=== PATIENT | female | born 1970 | race Two or more races ===

== ENCOUNTER 2025-07-04 17:53 | Inpatient (IN) | payer MEDICAID ==
[~2025-07-04] VITALS: Ht 167.6 cm; Wt 84.5 kg
[2025-07-04] MEDS ORDERED: KETOROLAC TROMETHAMINE 15 MG/ML VIAL ONE (18:18)
[2025-07-04] MEDS: KETOROLAC TROMETHAMINE 15 MG/ML VIAL IV ONE (18:27)
[2025-07-04] MEDS: IV NS 0.9% 1,000 ML BAG IV ONE (18:27)
[2025-07-04] MEDS ORDERED: ONDANSETRON HCL/PF 4 MG/2 ML VIAL ONE ×2 (18:31→20:12)
[2025-07-04 18:35] LABS: PLATELET COUNT (AUTO) 210 K/uL (150-450); RED BLOOD CELL COUNT(AUTO) 4.68 MIL/uL (4.0-5.2); RED CELL DISTRIBUTION WIDTH 13.1 % (11.5-15.0); WHITE BLOOD COUNT (AUTO) 10.4 K/uL (4.3-11.0)
[2025-07-04] MEDS: ONDANSETRON HCL/PF - ER 4 MG/2 ML VIAL IV ONE ×2 (18:35→20:12)
[2025-07-04] MEDS ORDERED: IOHEXOL-300 100 ML VIAL IV ONE (18:43)
[2025-07-04] MEDS ORDERED: IV NS 0.9% 250 ML IV ONE (18:43)
[2025-07-04 18:44] LABS: CALCIUM, SERUM 8.9 mg/dL (8.5-10.1); CREATININE 0.9 mg/dL (0.6-1.3); SODIUM SERUM 140.0 mmol/L (136-145); UREA NITROGEN, BLOOD 14.0 mg/dL (7-18)
[2025-07-04 18:49] LABS: ASPARTATE AMINOTRANSFERASE 18.0 U/L (15-37); TOTAL PROTEIN, SERUM 8.0 g/dL (6.4-8.2)
[2025-07-04 18:49] LABS: APPEARANCE,URINE SLIGHTLY CLOUDY (CLEAR); BLOOD, URINE 3+ Ery/uL (NEGATIVE); LEUKOCYTE ESTERASE ,URINE NEGATIVE (NEGATIVE); NITRITE, URINE NEGATIVE (NEGATIVE); UGLUCOSE NEGATIVE (NEGATIVE)
[2025-07-04 18:55] LABS: ADD URINE CULTURE YES; SQUAMOUS EPITHELIAL CELL,UR Many /HPF (None Seen)
[2025-07-04] MEDS ORDERED: MORPHINE SULFATE INJ 2 MG/ML DISP.SYRIN ONE (19:50)
[2025-07-04] MEDS ORDERED: HYDR-3976 GT (19:52)
[2025-07-04] MEDS: MORPHINE SULFATE INJ 2 MG/ML DISP.SYRIN IV ONE (19:52)
[2025-07-04] MEDS ORDERED: HYDROMORPHONE 1 MG/1 ML DISP.SYRIN ONE (20:55)
[2025-07-04] MEDS ORDERED: METOCLOPRAMIDE HCL 10 MG/2 ML VIAL ONE (20:55)
[2025-07-04] MEDS: METOCLOPRAMIDE HCL 10 MG/2 ML VIAL IV ONE (21:04)
[2025-07-04] MEDS: HYDROMORPHONE 1 MG/1 ML DISP.SYRIN IV ONE (21:04)
[2025-07-04] MEDS: IV NS 0.9% 1,000 ML IV ONE (22:00)
[2025-07-04] MEDS ORDERED: CEFTRIAXONE 1GM BAG (ER ONLY) 50 ML IV ONE (22:32)
[2025-07-04] MEDS: CEFTRIAXONE 1 G in IV D5W 50 ML IV ONE (22:36)
[2025-07-04] MEDS: TAMSULOSIN 0.4 MG CAP.SR.24H PO SCH (23:00)
[2025-07-04] MEDS ORDERED: HYDROMORPHONE INJ SYRINGE 1 MG in IV D5W 50 ML IV PRN (23:00)
[2025-07-05] VITALS: BP 144/78; TEMP 99; O2SAT 99
[2025-07-05] MEDS: IV NS 0.9% 1,000 ML IV PRN (00:24)
[2025-07-05 04:00] VITALS: BP 124/72; TEMP 98.6; O2SAT 95
[2025-07-05] MEDS: HYDROMORPHONE 1 MG/1 ML DISP.SYRIN IV PRN (05:47)
[2025-07-05] MEDS: ONDANSETRON HCL/PF 4 MG/2 ML VIAL IVP PRN (05:48)
[2025-07-05] MEDS: MAG HYDROX/AL HYDROX/SIMETH 30 ML UDC PO PRN (07:44)
[2025-07-05 08:00] VITALS: BP 130/81; TEMP 98.4; O2SAT 95
[2025-07-05 08:13] LABS: PLATELET COUNT (AUTO) 181 K/uL (150-450); RED BLOOD CELL COUNT(AUTO) 4.42 MIL/uL (4.0-5.2); RED CELL DISTRIBUTION WIDTH 13.1 % (11.5-15.0); WHITE BLOOD COUNT (AUTO) 24.4 K/uL (4.3-11.0)
[2025-07-05 08:21] LABS: CALCIUM, SERUM 8.3 mg/dL (8.5-10.1); CREATININE 1.3 mg/dL (0.6-1.3); PHOSPHORUS 3.6 mg/dL (2.5-4.9); SODIUM SERUM 139.0 mmol/L (136-145); UREA NITROGEN, BLOOD 14.0 mg/dL (7-18)
[2025-07-05] MEDS ORDERED: MIRABEGRON PO (09:17)
[2025-07-05] MEDS ORDERED: AMYL1CAP54 PO (09:17)
[2025-07-05] MEDS ORDERED: WEGOVY SQ (09:17)
[2025-07-05] MEDS ORDERED: FAMO40TA7 PO (09:17)
[2025-07-05] MEDS ORDERED: LACT1CAP71 PO (09:17)
[2025-07-05] MEDS ORDERED: HYDR-3980 PO (09:17)
[2025-07-05] MEDS: ENOXAPARIN SODIUM 40 MG/0.4 ML DISP.SYRIN SQ SCH (10:44)
[2025-07-05 16:00] VITALS: BP 102/69; TEMP 98.6; O2SAT 97
[2025-07-05] MEDS: ACETAMINOPHEN 325 MG TABLET PO PRN (16:20)
[2025-07-05 20:00] VITALS: BP 104/65; TEMP 97.9; O2SAT 98
[2025-07-05] MEDS: CEFTRIAXONE 1 G in IV D5W 50 ML IV SCH (20:12)
[2025-07-06 04:00] VITALS: BP 110/73; TEMP 97.3; O2SAT 94
[2025-07-06 07:16] LABS: PLATELET COUNT (AUTO) 145 K/uL (150-450); RED BLOOD CELL COUNT(AUTO) 3.95 MIL/uL (4.0-5.2); RED CELL DISTRIBUTION WIDTH 13.5 % (11.5-15.0); WHITE BLOOD COUNT (AUTO) 12.9 K/uL (4.3-11.0)
[2025-07-06 07:38] LABS: ASPARTATE AMINOTRANSFERASE 34.0 U/L (15-37); CALCIUM, SERUM 7.9 mg/dL (8.5-10.1); CREATININE 0.9 mg/dL (0.6-1.3); PHOSPHORUS 2.2 mg/dL (2.5-4.9); SODIUM SERUM 138.0 mmol/L (136-145); TOTAL PROTEIN, SERUM 6.6 g/dL (6.4-8.2); UREA NITROGEN, BLOOD 11.0 mg/dL (7-18)
[2025-07-06 08:00] VITALS: BP 108/67; TEMP 98.4; O2SAT 94
[2025-07-06] MEDS: KETOROLAC TROMETHAMINE INJ 30 MG/ML VIAL IV PRN (09:22)
[2025-07-06] MEDS: K PHOS NEUTRAL 250 MG TABLET PO ONE (16:32)
[2025-07-06 17:15] VITALS: BP 131/86; TEMP 97.9; O2SAT 95
[2025-07-06 20:00] VITALS: BP 124/63; TEMP 97.5; O2SAT 98
[2025-07-07 04:00] VITALS: BP 133/78; TEMP 98.6; O2SAT 97
[2025-07-07 07:35] LABS: PLATELET COUNT (AUTO) 132 K/uL (150-450); RED BLOOD CELL COUNT(AUTO) 3.68 MIL/uL (4.0-5.2); RED CELL DISTRIBUTION WIDTH 13.1 % (11.5-15.0); WHITE BLOOD COUNT (AUTO) 9.1 K/uL (4.3-11.0)
[2025-07-07 07:46] LABS: ASPARTATE AMINOTRANSFERASE 23.0 U/L (15-37); CALCIUM, SERUM 7.9 mg/dL (8.5-10.1); CREATININE 0.7 mg/dL (0.6-1.3); PHOSPHORUS 2.2 mg/dL (2.5-4.9); SODIUM SERUM 140.0 mmol/L (136-145); TOTAL PROTEIN, SERUM 6.2 g/dL (6.4-8.2); UREA NITROGEN, BLOOD 9.0 mg/dL (7-18)
[2025-07-07 08:00] VITALS: BP 134/81; TEMP 98.6; O2SAT 95
[2025-07-07 16:00] VITALS: BP 135/89; TEMP 98.1; O2SAT 97
[2025-07-07] MEDS: K PHOS NEUTRAL 250 MG TABLET PO ONE (16:06)
[2025-07-07 20:00] VITALS: BP 126/75; TEMP 98.3; O2SAT 98
[2025-07-08 04:00] VITALS: BP 130/80; TEMP 98.5; O2SAT 98
[2025-07-08 08:00] VITALS: BP 137/91; TEMP 97.3; O2SAT 99
[2025-07-08 08:04] LABS: CALCIUM, SERUM 8.0 mg/dL (8.5-10.1); CREATININE 0.7 mg/dL (0.6-1.3); PHOSPHORUS 2.3 mg/dL (2.5-4.9); SODIUM SERUM 140.0 mmol/L (136-145); UREA NITROGEN, BLOOD 7.0 mg/dL (7-18)
[2025-07-08] MEDS: K PHOS NEUTRAL 250 MG TABLET PO ONE (11:35)
[2025-07-08] MEDS ORDERED: CEPH-570 PO (14:05)
== END 2025-07-08 15:08 | disposition home or self-care (01) | DRG 463 ==
LOC: ER 18:06 → MEDSG1 23:07
DX: N13.6 Pyonephrosis (principal); N20.1 Calculus of ureter; B96.4 Proteus (mirabilis) (morganii) as the cause of diseases classified elsewhere; Z90.49 Acquired absence of other specified parts of digestive tract; Z90.710 Acquired absence of both cervix and uterus; N81.10 Cystocele, unspecified
CPT/HCPCS: 36415; 76770-TC; 80048-TC; 80053-TC; 80076-TC; 81001; 83690-TC; 83735-TC; 84100-TC; 85025-TC; 87086-TC; 87186-TC; A4223; G0378; J0696; J1171; J1200; J1650; J1885; J2270; J2405; J2765; J7030; J7050; J7060; Q9967